=== PATIENT | male | born 1980 | race Caucasian/White ===

== ENCOUNTER 2016-09-09 07:02 | Emergency (ER) | payer OTHER ==
[~2016-09-09] VITALS: Ht 195.6 cm; Wt 86.2 kg
[2016-09-09 07:02] VITALS: BP 140/89
== END 2016-09-09 08:53 | disposition home or self-care (01) ==
LOC: ER 07:03
DX: K08.89 Other specified disorders of teeth and supporting structures (principal); L03.211 Cellulitis of face; F17.200 Nicotine dependence, unspecified, uncomplicated; Z88.8 Allergy status to other drugs, medicaments and biological substances
CPT/HCPCS: 99283; A4606; Z7610

== ENCOUNTER 2016-09-10 15:24 | Emergency (ER) | payer MEDICAID ==
[~2016-09-10] VITALS: Ht 195.6 cm; Wt 83.9 kg
[2016-09-10 15:50] VITALS: BP 142/81
== END 2016-09-10 16:11 | disposition home or self-care (01) ==
LOC: ER 15:28
DX: K04.7 Periapical abscess without sinus (principal); Z88.8 Allergy status to other drugs, medicaments and biological substances; F17.210 Nicotine dependence, cigarettes, uncomplicated
CPT/HCPCS: A4606; Z7502; Z7610